=== PATIENT | female | born 1995 | race Two or more races ===

== ENCOUNTER 2024-11-12 19:57 | Emergency (ER) | payer OTHER ==
[~2024-11-12] VITALS: Ht 165.1 cm; Wt 64.9 kg
[2024-11-12] MEDS ORDERED: PRENATA CHEWAB1 EACH (20:02)
== END 2024-11-13 02:14 ==
LOC: ER 19:59
DX: O26.893 Other specified pregnancy related conditions, third trimester (principal); Z3A.28 28 weeks gestation of pregnancy; S93.402A Sprain of unspecified ligament of left ankle, initial encounter